=== PATIENT | male | born 1940 | race Caucasian/White ===

== ENCOUNTER 2017-12-06 20:05 | Emergency (ER) | payer MEDICARE, MEDICAID ==
[~2017-12-06] VITALS: Ht 182.9 cm; Wt 59.0 kg
--- NOTE | 2017-12-06 20:05 | NUR ---
BIBA TO ER BED 1
[2017-12-06 20:13] VITALS: BP 71/43
[2017-12-06] MEDS ORDERED: MEROPENEM 1,000 MG in NACL 0.9% 100 ML IV ONE (20:15)
[2017-12-06] MEDS ORDERED: VANCOMYCIN 1,000 MG in DEXTROSE 5% 250 ML IV ONE (20:15)
[2017-12-06] MEDS ORDERED: NACL 0.9% 2,000 ML IV ONE (20:15)
[2017-12-06] MEDS ORDERED: VANCOMYCIN 1,000 MG VIAL ONE (20:38)
[2017-12-06] MEDS ORDERED: MEROPENEM 1,000 MG VIAL IV ONE (20:38)
--- NOTE | 2017-12-06 20:55 | NUR ---
MORELAND REMOVED FROM CEC/SNF. NEW 16FR MORELAND INSERTED, WAITING ON UA. # 16 FR Moreland catheter with 10 ml utilizing sterile technique. Immediate return of CLOUDY YELLOW 2ml urine noted. Bedside drainage bag placed below level of bladder. Urine sample collected and sent to lab. Pt tolerated procedure .
[2017-12-06 21:30] LABS: HEMATOCRIT 42.9 % (36-52); HEMOGLOBIN 13.5 g/dL (12.0-18.0); MEAN CORPUSCULAR HEMOGLOBIN 25 pg (27-31); MEAN CORPUSCULAR HGB CONC 31 g/dL (33-37); MEAN CORPUSCULAR VOLUME 79 fL (80-94); PLATELET COUNT (AUTO) 485 K/uL (140-450); RED BLOOD CELL COUNT(AUTO) 5.43 MIL/uL (4.20-6.10); RED CELL DISTRIBUTION WIDTH 15.6 % (11.6-13.7)
--- NOTE | 2017-12-06 21:30 | NUR ---
Patient noted to have existing wounds upon arrival to ER. Photos taken of wound and placed in chart. Wound covered with dressing. Physician informed.
[2017-12-06 21:47] LABS: WHITE BLOOD COUNT (AUTO) 31.9 K/uL (4.8-10.8)
[2017-12-06 21:48] LABS: LYMPHOCYTES % (MANUAL) 7 % (20-46); MONOCYTES % (MANUAL) 1 % (5-12); PROTHROMBIN TIME 10.3 secs (10.8-13.4)
--- NOTE | 2017-12-06 21:48 | NUR ---
Critical lab recieved: WBC 31.9. Dr Caballero informed. Antibiotics running at this time.
[2017-12-06 21:58] LABS: ALBUMIN 2.5 g/dL (3.4-5.0); ANION GAP 19.8 (8-16); ASPARTATE AMINOTRANSFERASE 71 U/L (15-37); CHLORIDE 120 mmol/L (98-107); GLUCOSE 275 mg/dL (74-106); LIPASE 144 U/L (73-393); POTASSIUM 3.8 mmol/L (3.5-5.1); TOTAL BILIRUBIN 0.8 mg/dL (0.0-1.0)
[2017-12-06 22:06] LABS: SODIUM SERUM 164 mmol/L (136-145); UREA NITROGEN, BLOOD 81 mg/dL (7-18)
--- NOTE | 2017-12-06 22:47 | NUR ---
Pt in bed with HOB elevated. VSS. Pt no longer hypotensive. ER MD aware. Continue to monitor.
--- NOTE | 2017-12-06 23:23 | NUR ---
Pt in bed with HOB elevated. VSS. ER MD aware. Continue to monitor.
[2017-12-06 23:34] LABS: APPEARANCE,URINE CLOUDY (CLEAR); BILIRUBIN,URINE 1+ (NEGATIVE); BLOOD, URINE TRACE-L (NEGATIVE); COLOR,URINE YELLOW (YELLOW); LEUKOCYTE ESTERASE ,URINE 1+ (NEGATIVE); NITRITE, URINE NEGATIVE (NEGATIVE); UGLUCOSE NEGATIVE (NEGATIVE)
[2017-12-06] MEDS ORDERED: NACL 0.9% 1,000 ML IV ONE (23:40)
[2017-12-06] MEDS ORDERED: ACETAMINOPHEN 650 MG/20.3 ML UDC ONE (23:44)
[2017-12-06] MEDS ORDERED: ACETAMINOPHEN 650 MG SUPP RC ONE (23:49)
[2017-12-06 23:58] LABS: HYALINE CASTS, URINE 0-10 /LPF (None Seen); RBC,URINE 11-20 (MOD) /HPF (0-5); URINE AMORPHOUS URATE 3+ /HPF (None Seen)
--- NOTE | 2017-12-07 | NUR ---
Pt with temp of 101.2. Tylenol 650mg supp given per protocol. Dr Caballero notifed. Cooling measures in place. Continue to monitor.
--- NOTE | 2017-12-07 00:02 | NUR ---
Lab called with critical values: Lactic acid 3.7, Troponin 0.158. Dr Caballero immediately informed. Continue to [facility].
[2017-12-07 00:52] LABS: CREATINE KINASE MB 0.3 ng/mL (0-3.6)
--- NOTE | 2017-12-07 01:04 | NUR ---
Patient appears to be resting in bed. Vital Signs within normal limits. Respirations even and unlabored.
--- NOTE | 2017-12-07 01:06 | NUR ---
Respiratory Therapist at bedside for respiratory intervention. Patient tolerated well. 02 decreased to 6L via mask.
--- NOTE | 2017-12-07 01:30 | NUR ---
Pt report given to ALESSANDRO. Transfer of care at this time.
--- NOTE | 2017-12-07 02:00 | NUR ---
HOB elevated. Pt's eyes open. VSS. ER MD and staff aware. Continue monitoring.
--- NOTE | 2017-12-07 03:00 | NUR ---
HOB elevated. Pt's eyes open. VSS. ER MD and staff aware. Continue monitoring.
[2017-12-07] MEDS ORDERED: MORPHINE SULFATE 2 MG/ML SYR IVP ONE (03:25)
[2017-12-07] MEDS ORDERED: ONDANSETRON 4 MG/2 ML VIAL IVP ONE (03:25)
--- NOTE | 2017-12-07 03:30 | NUR ---
Pt agitated and groning. ER MD notified. Medicated to decrease pain. VSS. Continue monitoring.
[2017-12-07] MEDS ORDERED: NACL 0.45% 1,000 ML IV ONE (03:35)
[2017-12-07 03:56] LABS: HEMATOCRIT 38.2 % (36-52); HEMOGLOBIN 11.8 g/dL (12.0-18.0); MEAN CORPUSCULAR HEMOGLOBIN 25 pg (27-31); MEAN CORPUSCULAR HGB CONC 31 g/dL (33-37); MEAN CORPUSCULAR VOLUME 80 fL (80-94); PLATELET COUNT (AUTO) 338 K/uL (140-450); RED BLOOD CELL COUNT(AUTO) 4.78 MIL/uL (4.20-6.10); RED CELL DISTRIBUTION WIDTH 15.4 % (11.6-13.7)
--- NOTE | 2017-12-07 04:10 | NUR ---
Pt temp [id number]. Cooling measures implemented.
[2017-12-07] MEDS ORDERED: ACETAMINOPHEN 650 MG SUPP RC ONE ×3 (04:20→04:21)
[2017-12-07 04:23] LABS: ANION GAP 14.5 (8-16); ASPARTATE AMINOTRANSFERASE 45 U/L (15-37); CARBON DIOXIDE 24.9 mmol/L (21-32); CHLORIDE 124 mmol/L (98-107); CREATININE 3.1 mg/dL (0.7-1.3); GLUCOSE 332 mg/dL (74-106); POTASSIUM 3.4 mmol/L (3.5-5.1); TOTAL BILIRUBIN 0.9 mg/dL (0.0-1.0)
--- NOTE | 2017-12-07 04:30 | NUR ---
Pt escorted to CT via vi with [facility] and tech
[2017-12-07 04:32] LABS: SODIUM SERUM 160 mmol/L (136-145)
[2017-12-07 04:33] LABS: UREA NITROGEN, BLOOD 73 mg/dL (7-18)
[2017-12-07 04:34] LABS: WHITE BLOOD COUNT (AUTO) 35.5 K/uL (4.8-10.8)
[2017-12-07 04:35] LABS: LYMPHOCYTES % (MANUAL) 4 % (20-46); MONOCYTES % (MANUAL) 2 % (5-12)
--- NOTE | 2017-12-07 04:40 | NUR ---
Pt returned to ED from CT
[2017-12-07] MEDS ORDERED: PIPERACILLIN/TAZOBACTAM 4.5 GM in DEXTROSE 5% 100 ML IV ONE (04:55)
[2017-12-07] MEDS ORDERED: PIPERACILLIN/TAZOBACTAM 2.25 GM VIAL IV ONE (05:01)
[2017-12-07] MEDS ORDERED: IPRATROPIUM 0.02% 0.5 MG/2.5 ML NEBU INH ONE (05:15)
[2017-12-07] MEDS ORDERED: ALBUTEROL 0.083% 2.5 MG/3 ML NEBU INH ONE (05:15)
[2017-12-07] MEDS ORDERED: MORPHINE SULFATE 4 MG/ML SYR IVP ONE (05:40)
[2017-12-07] MEDS ORDERED: MORPHINE SULFATE 4 MG/ML SYR ONE (05:42)
--- NOTE | 2017-12-07 05:45 | NUR ---
Pt continues to exhibit pain with grunting/moaning. ER MD notified. Medicated to reduce pain. VSS. Continue monitoring.
--- NOTE | 2017-12-07 06:00 | NUR ---
Pt positioned for comfort. Pt appears to be resting. Not groaning or facial grimace at this time. VSS continue to monitor.
[2017-12-07 06:02] LABS: ANION GAP 16.5 (8-16); CARBON DIOXIDE 20.8 mmol/L (21-32); CHLORIDE 117 mmol/L (98-107); CREATININE 2.5 mg/dL (0.7-1.3); GLUCOSE 315 mg/dL (74-106); POTASSIUM 3.3 mmol/L (3.5-5.1); SODIUM SERUM 151 mmol/L (136-145)
--- NOTE | 2017-12-07 06:06 | NUR ---
Lab called with critical lab value: BUN 64. Dr Caballero notified immediately. Continue to monitor. VSS
[2017-12-07 06:07] LABS: UREA NITROGEN, BLOOD 64 mg/dL (7-18)
--- NOTE | 2017-12-07 06:15 | NUR ---
Spoke to [place] with updated Chem-7 labs. Pt VSS. Awaiting call back from [place] at this time. ER MD and staff notified. Continue to monitor.
--- NOTE | 2017-12-07 07:08 | NUR ---
[facility] . Dr Tiffanie Artis MD, Step down room 8041M ETA: ALS 07:30
--- NOTE | 2017-12-07 07:10 | NUR ---
RECEIVED REPORT FROM JESU FRANCOIS. Patient appears to be resting comfortably in bed. Vital Signs within normal limits. Respirations even and unlabored. WILL CONTINUE TO MONITOR.
--- NOTE | 2017-12-07 07:27 | NUR ---
TRIED TO CALL REPORT PT TO [facility]; 10 MINS WILL CALL BACK.
[2017-12-07 07:41] VITALS: BP 115/45
--- NOTE | 2017-12-07 07:41 | NUR ---
Patient to be transferred to [facility]. Is being transferred due to []. Receiving facility has accepting physician and available space. ER physician has signed transfer form. Patient or responsible green party has agreed to transfer and signed form. Patient belongings inventoried and will be sent with patient. Copy of nursing notes, lab reports, EKG, Physicians Orders and X-rays to be sent with patient. Report called to JESU CHAVIRA at receiving facility. [facility] service has been called for transfer. ERIC LEÓN.
--- NOTE | 2017-12-07 07:49 | NUR ---
CREW ARRIVED FOR PT TRANSPORT TO [facility]
--- NOTE | 2017-12-07 08:13 | NUR ---
PT LEFT WITH AMBULANCE CREW
== END 2017-12-07 08:13 | disposition short-term general hospital (02) ==
LOC: MED 20:05
DX: A41.9 Sepsis, unspecified organism (principal); J18.1 Lobar pneumonia, unspecified organism; N39.0 Urinary tract infection, site not specified; E86.0 Dehydration; E87.0 Hyperosmolality and hypernatremia; E11.9 Type 2 diabetes mellitus without complications; I10 Essential (primary) hypertension
CPT/HCPCS: 36415; 36600; 71045; 74176; 80048; 80053; 81001; 82140; 82550; 82553; 82803; 83605; 83690; 84484; 85025; 85384; 85610; 85730; 86886; 86900; 86901; 87040; 87086; 87205; 93005; 94640; 96361; 96365; 96366; 96367; 96375; 96376; 99291; 99292; J2185; J2270; J2405; J2543; J3370; J7030; J7060; J7613; J7644; 87070

== ENCOUNTER 2018-04-24 06:45 | Inpatient (IN) | payer MEDICARE, MEDICAID ==
[~2018-04-24] VITALS: Ht 165.1 cm; Wt 55.3 kg
--- NOTE | 2018-04-24 06:45 | NUR ---
PT BIBA ALS, TAKEN TO BED 10
--- NOTE | 2018-04-24 06:48 | NUR ---
Dr. Thao evaluating patient at bedside.
[2018-04-24 06:54] VITALS: BP 111/48
[2018-04-24] MEDS ORDERED: NACL 0.9% 500 ML IV SCH (07:05)
--- NOTE | 2018-04-24 07:09 | NUR ---
PT. BIB ALS FROM [facility] DUE TO "WAKING UP ALTERED" PER REPORT GIVEN BY JESU BLANDON. PT. IS AWAKE AND ALERT X 2 , RR EVEN AND TaCHYPNEIC. PT. IS WARM AND DRY TO TOUCH. LS: CRACKLES BILATERAL BASES. 4L VIA NC. MORELAND CATH IN PLACE FROM [facility]. COUGH: NON PRODUCTIVE.NO BAUSEA OR VOMITING AT THIS TIME. SAFETY PRECAUTIONS INITIATED. ER MD NOTIFIED. WILL CONTINUE TO MONITOR.
[2018-04-24] MEDS ORDERED: LACT0.5T PO (07:21)
[2018-04-24] MEDS ORDERED: DOCU-300 PO (07:21)
[2018-04-24] MEDS ORDERED: [UNRECOGNIZED DRUG - CODE] TD (07:21)
[2018-04-24] MEDS ORDERED: TAMS0.4C96 PO (07:21)
[2018-04-24] MEDS ORDERED: [UNRECOGNIZED DRUG - CODE] PO (07:21)
[2018-04-24] MEDS ORDERED: KEP500 PO (07:21)
[2018-04-24] MEDS ORDERED: ASPI81CT33 PO (07:21)
[2018-04-24] MEDS ORDERED: CRAN450T4 PO (07:21)
--- NOTE | 2018-04-24 07:33 | NUR ---
LAB AT BEDSIDE AT THIS TIME.
[2018-04-24] MEDS ORDERED: MULT-492 PO (07:45)
[2018-04-24] MEDS ORDERED: HYDR-7 PO (07:45)
[2018-04-24] MEDS ORDERED: AMLO10TA PO (07:45)
[2018-04-24] MEDS ORDERED: ACET-9800 PO (07:45)
[2018-04-24] MEDS ORDERED: METO25TA PO (07:45)
[2018-04-24] MEDS ORDERED: ACET-2619 PO (07:45)
[2018-04-24] MEDS ORDERED: MELA5TAB5 PO (07:45)
[2018-04-24] MEDS ORDERED: ASCO500T45 PO (07:45)
[2018-04-24] MEDS ORDERED: DRON2.5C PO (07:45)
[2018-04-24] MEDS ORDERED: MIRABULK PO (07:45)
[2018-04-24] MEDS ORDERED: GABA100C PO (07:45)
[2018-04-24] MEDS ORDERED: OMEP20TC PO (07:45)
[2018-04-24] MEDS ORDERED: LACT10SO1 PO (07:45)
[2018-04-24] MEDS ORDERED: GLIP5TER PO (07:52)
[2018-04-24] MEDS ORDERED: SLIDE SUBQ (07:52)
[2018-04-24] MEDS ORDERED: FENT50TD45 TD (07:52)
--- NOTE | 2018-04-24 08:36 | NUR ---
PT. REPOSITIONED FOR COMFORT, RR EVEN AND UNLABORED. BED IN LOWEST POSITION. PT HAS NO URINE OUTPUT FROM CATHETER AT THIS TIME. ER MD RUSSELL NOTIFIED. WILL CONTINUE TO MONITOR.
[2018-04-24] MEDS ORDERED: NACL 0.9% 500 ML IV ONE ×3 (08:40→19:25)
[2018-04-24 08:45] LABS: PROTHROMBIN TIME 11.4 secs (10.8-13.4)
[2018-04-24 08:49] LABS: CHLORIDE 108 mmol/L (98-107); GLUCOSE 280 mg/dL (74-106); SODIUM SERUM 146 mmol/L (136-145); UREA NITROGEN, BLOOD 35 mg/dL (7-18)
[2018-04-24 08:55] LABS: ALBUMIN 2.7 g/dL (3.4-5.0); ASPARTATE AMINOTRANSFERASE 19 U/L (15-37); TOTAL BILIRUBIN 0.6 mg/dL (0.0-1.0)
--- NOTE | 2018-04-24 08:57 | NUR ---
FRANK VENTURA CALLED FROM LAB TO REPORT A CRITICAL LAB FINDING OF LACTIC ACID 9.8. ER MD RUSSELL NOTIFIED.
[2018-04-24 08:59] LABS: HEMATOCRIT 40.8 % (36-52); HEMOGLOBIN 12.5 g/dL (12.0-18.0); MEAN CORPUSCULAR HEMOGLOBIN 26 pg (27-31); MEAN CORPUSCULAR HGB CONC 31 g/dL (33-37); MEAN CORPUSCULAR VOLUME 83.8 fL (80-94); PLATELET COUNT (AUTO) 254 K/uL (140-450); RED BLOOD CELL COUNT(AUTO) 4.87 MIL/uL (4.20-6.10); RED CELL DISTRIBUTION WIDTH 15.8 % (11.6-13.7)
[2018-04-24] MEDS ORDERED: fentaNYL 0.05 MG/HR PATCH TD SCH (09:00)
[2018-04-24] MEDS ORDERED: PIPERACILLIN/TAZOBACTAM 3.375 GM in DEXTROSE 5% 50 ML IV ONE (09:00)
[2018-04-24] MEDS ORDERED: PIPERACILLIN/TAZOBACTAM 3.375 GM VIAL IV ONE (09:07)
[2018-04-24 09:12] LABS: WHITE BLOOD COUNT (AUTO) 37.8 K/uL (4.8-10.8)
[2018-04-24 09:13] LABS: LYMPHOCYTES % (MANUAL) 6 % (20-46); MONOCYTES % (MANUAL) 3 % (5-12)
[2018-04-24] MEDS ORDERED: SODIUM BICARBONATE 8.4% PFS 50 MEQ/50 ML SYR IVP ONE (09:25)
[2018-04-24] MEDS ORDERED: ASPIRIN 600 MG SUPP RC ONE (09:25)
--- NOTE | 2018-04-24 10:12 | NUR ---
RT at bedside at this time.
--- NOTE | 2018-04-24 10:13 | NUR ---
PT. has not produced any urine at this time. ER notified. Will continue to monitor.
--- NOTE | 2018-04-24 10:43 | NUR ---
PT. TAKEN TO CT SCAN VIA GURNEY BY FABRIC SEPARATOR OPERATOR
--- NOTE | 2018-04-24 11:31 | NUR ---
PT. RESTING COMFORTABLY IN BED, RR EVEN AND UNLABORED. BED IN LOWEST POSITION, VSS. WILL CONTINUE TO MONITOR.
[2018-04-24] MEDS ORDERED: NACL 0.9% 1,000 ML IV SCH (12:01)
[2018-04-24] MEDS ORDERED: HYDROcodone/APAP 5/325 MG 1 TAB TAB PO PRN (12:05)
[2018-04-24] MEDS ORDERED: ACETAMINOPHEN 325 MG TAB PO PRN (12:05)
[2018-04-24] MEDS ORDERED: ZOLPIDEM 5 MG TAB PO PRN (12:05)
[2018-04-24] MEDS ORDERED: ONDANSETRON 4 MG/2 ML VIAL IM/IVP PRN (12:05)
[2018-04-24] MEDS ORDERED: LORazepam 2 MG/ML VIAL IM/IVP PRN (12:05)
[2018-04-24] MEDS ORDERED: MUPIROCIN 2% OINT 22 GM TUBE TP PRN (12:05)
[2018-04-24] MEDS ORDERED: DOCUSATE SODIUM 100 MG GELCAP PO PRN (12:05)
[2018-04-24 12:24] LABS: APPEARANCE,URINE HAZY (CLEAR); BILIRUBIN,URINE 2+ (NEGATIVE); BLOOD, URINE 2+ (NEGATIVE); COLOR,URINE YELLOW (YELLOW); LEUKOCYTE ESTERASE ,URINE NEGATIVE (NEGATIVE); NITRITE, URINE NEGATIVE (NEGATIVE); UGLUCOSE NEGATIVE (NEGATIVE)
[2018-04-24] MEDS ORDERED: NOREPINEPHRINE 4 MG in DEXTROSE 5% 250 ML IV PRN (12:25)
[2018-04-24] MEDS ORDERED: NOREPINEPHRINE 8 MG in DEXTROSE 5% 250 ML IV PRN (12:25)
[2018-04-24] MEDS ORDERED: ALBUTEROL SULFATE/IPRATROPIU 3 ML SOL IH PRN ×2 (12:30→22:00)
--- NOTE | 2018-04-24 12:30 | NUR ---
PT. IN BED RESTING, PT. REPOSITIONED, PILLOW IN PLACE BETWEEN LEGS, BED IN LOWEST POSITION. WILL CONTINUE TO MONITOR.
[2018-04-24 12:37] LABS: RBC,URINE 0-5 (RARE) /HPF (0-5); URINE AMORPHOUS URATE 1+ /HPF (None Seen)
[2018-04-24 12:51] LABS: BARBITURATE, URINE NEG. ng/ml (NEG <=200); BENZODIAZEPINE, URINE NEG. ng/mL (NEG <=200); CANNABINOID, URINE POS. ng/mL (NEG <=50); COCAINE, URINE NEG. ng/mL (NEG <=300); OPIATE, URINE NEG. ng/mL (NEG <=2000); PHENCYCLIDINE SCREEN,URINE NEG. ng/mL (NEG <=25)
[2018-04-24] MEDS ORDERED: HEPARIN PER PHARMACY MC PRN (13:00)
[2018-04-24] MEDS ORDERED: hePARIN / DEXT 5% PREMIX 250 ML IV SCH ×2 (13:00→13:20)
--- NOTE | 2018-04-24 13:00 | NUR ---
Patient will be admitted to care of DR. BAUTISTA . Admited to ICU . Will go to room ICU ROOM 5 . Belongings list completed. Report to JESU OVGT .
--- NOTE | 2018-04-24 13:10 | NUR ---
PATIENT ARRIVED TO THE UNIT WITH RETAIL LEADER AND EMT AT 1300. RECEIVED REPORT FOR CONTINUITY OF CARE. PATIENT AAOX1, NONVERBAL, RESPONDS TO LIGHT PAIN. SKIN IS WARM AND DRY AND INTACT. HE HAS A PERIPHERAL IV SITE TO RIGHT WRIST, 22 GAUGE, ASYMPTOMATIC AND PATENT. HE IS ON 2L NASAL CANNULA, O2 SAT IS 100, CRACKLES HEARD ON THE BILATERAL BASES, SR ON MONITOR. PATIENT HAS MORELAND CATHETER IN PLACE. HOB IS 45 DEGREES, PATIENT IS WATCHING TV COMFORTABLY. NO SIGNS OF DISTRESS NOTED AT THIS TIME. WILL CONTINUE TO MONITOR
[2018-04-24 14:00] VITALS: BP 125/71
--- NOTE | 2018-04-24 14:05 | NUR ---
DR. HAM AT BEDSIDE TO EXAMINE PATIENT, UPDATED ON PATIENT'S CONDITION. WILL FOLLOW UP ON ANY ORDERS
[2018-04-24] MEDS ORDERED: LORazepam 2 MG/ML VIAL IVP SCH (14:15)
[2018-04-24] MEDS ORDERED: metroNIDAZOLE 500 MG/NS PREMIX 100 ML IV SCH (14:15)
--- NOTE | 2018-04-24 14:15 | NUR ---
SPOKE WITH DAUGHTER NUNO, RECEIVED TELEPHONE CONSENT FOR CENTRAL LINE PLACEMENT, SHE AGREED FOR PROCEDURE. UPDATED DAUGHTER ON PATIENT'S CONDITION.
[2018-04-24] MEDS: DEXT 5% /NACL 0.9% 1,000 ML IV SCH ×2 (14:39→20:01)
--- NOTE | 2018-04-24 14:45 | NUR ---
AND DR. AVELAR AT BEDSIDE WITH THE [facility] FOR CENTRAL LINE PLACEMENT. PATIENT PRESENTS NO SIGNS OF DISTRESS AT THIS TIME.
[2018-04-24] MEDS: ALBUTEROL SULFATE/IPRATROPIU 3 ML SOL IH SCH ×2 (14:52→19:43)
--- NOTE | 2018-04-24 14:52 | NUR ---
PT HAVING STERILE PROCEDURE HHN NOT GIVEN 98 SPO2 ON RA
[2018-04-24] MEDS ORDERED: LORazepam 2 MG/ML VIAL IM/IVP SCH (14:55)
[2018-04-24] MEDS ORDERED: NON-FORMULARY ITEM (Lactulose 10 GM) PO PRN (14:55)
[2018-04-24 15:02] LABS: CHOL/HDL RATIO 3.1 (1-4.5); MAGNESIUM 1.5 mg/dL (1.8-2.4); THYROID STIMULATING HORMONE 0.45 uIU/mL (0.34-3.74)
[2018-04-24] MEDS ORDERED: HYDROmorphone 1 MG/ML AMP IVP SCH (15:05)
[2018-04-24] MEDS ORDERED: HYDROmorphone PFS 2 MG/ML SYR ONE (15:14)
[2018-04-24] MEDS ORDERED: DEXTROSE 50% 50 ML SYR IVP PRN (15:25)
[2018-04-24] MEDS ORDERED: INSULIN LISPRO SLIDING SCALE 100 UNITS/ML VIAL SUBQ PRN (15:25)
--- NOTE | 2018-04-24 15:28 | NUR ---
CENTRAL LINE PLACE COMPLETED, PATIENT TOLERATED WELL. PATIENT WAS GIVEN ATIVAN AND DILAUDID DURING PROCEDURE, VITALS WERE STABLE. NO SIGNS OF DISTRESS NOTED. WILL CONTINUE TO MONITOR.
--- NOTE | 2018-04-24 15:50 | NUR ---
LAMP SHADE ASSEMBLER AT BEDSIDE FOR XRAY OF PLACEMENT OF CENTRAL LINE. NO SIGNS OF DISTRESS NOTED.
[2018-04-24 16:00] VITALS: BP 95/59
[2018-04-24] MEDS: BLOOD GLUCOSE MONITORING 1 DEV DEV FS SCH ×2 (16:30→20:18)
--- NOTE | 2018-04-24 16:51 | NUR ---
US TECH AT BEDSIDE FOR US OF CAROTID, PATIENT IS RESTING COMFORTABLY, NO SIGNS OF DISTRESS NOTED. WILL CONTINUE TO MONITOR
[2018-04-24] MEDS: GABAPENTIN 100 MG CAP PO SCH ×2 (17:00→17:54)
--- NOTE | 2018-04-24 17:02 | NUR ---
CHANGED AND CLEANED PATIENT, TOLERATED WELL. NO SIGNS OF DISTRESS NOTED.
[2018-04-24] MEDS ORDERED: LACTULOSE 20 GM/30 ML UDC PO PRN (17:20)
--- NOTE | 2018-04-24 17:56 | NUR ---
TRIED TO ADMINISTER PATIENT'S SCHEDULE PO MEDS HOWEVER PATIENT REFUSED TO TAKE IT.
[2018-04-24 18:00] VITALS: BP 106/54
--- NOTE | 2018-04-24 18:07 | NUR ---
PATIENT IS RESTING COMFORTABLY, NO SIGNS OF DISTRESS NOTED.
--- NOTE | 2018-04-24 18:26 | NUR ---
PATIENT'S DAUGHTER AT BEDSIDE, UPDATED ON PATIENT'S CONDITION. NO SIGNS OF DISTRESS NOTED.
--- NOTE | 2018-04-24 18:39 | NUR ---
PATIENT'S DAUGHTER NUNO FIGUEROA AT BEDSIDE. UPDATED OF PATIENT'S CONDITION.
--- NOTE | 2018-04-24 19:04 | NUR ---
DR. ZELAYA AND DR. PATEL AT BEDSIDE, UPDATED ON PATIENTS CONDITION. DR. PATEL UPDATED PATIENT'S DAUGHTER ON PATIENT'S CONDITION. NO SIGNS OF DISTRESS NOTED AT THIS TIME.
--- NOTE | 2018-04-24 19:15 | NUR ---
ENDORSED BEDSIDE REPORT TO POLICY LOAN CALCULATOR RN FOR CONTINUITY OF CARE. NO SIGNS OF DISTRESS NOTED AT THIS TIME
--- NOTE | 2018-04-24 19:20 | NUR ---
RECEIVED REPORT FROM AM SHIFT. PT RECEIVING FLUID BOLUS NS 500ML. IV SITE. TEMP WNL. IV SITE RIGHT IJ. LEFT HAND. LEFT WRIST PATENT. NO SIGNS OF ACUTE DISTRESS AT THIS TIME. BED IN LOWEST POSITION. SIDE RAILS UP X4. FAMILY AT BEDSIDE Addendum: 04/24/18 at 2352 by Leopoldo Wilson RN PT IS AO X 1. AFEBRILE. NONVERBAL. RESPONDS TO VERBAL AND TACTILE STIMULI. O2 2LPM VIA NC. LUNG SOUNDS CLEAR BILATERALLY. A FIB ON MONITOR. F/C PATENT URINE CLEAR, YELLOW. ABD SOFT, ROUND. BOWEL SOUNDS HYPO ACTIVE X4 QUADRANTS. CONTRACTED BUE/BLE. SKIN WARM DRY. REDNESS NOTED TO SACRAL COCCYX AREA. WILL CONTINUE TO MONITOR.
[2018-04-24 20:00] VITALS: BP 112/62
[2018-04-24] MEDS: PIPER/TAZO 2.25GM/D5W PREMIX 50 ML IV SCH (20:01)
--- NOTE | 2018-04-24 20:02 | NUR ---
PT NO LONGER RECEIVING OXYGEN VIA NC AT THIS TIME. PER RT, PT CAN TOLERATED IT DUE TO OXYGEN SATURATION RIGHT NOW AT 2L/MIN IS AT 100%. PER RT, OXYGEN SATURATION TO BE KEPT BETWEEN 92%-94%. WILL CONTINUE TO MONITOR PT.
[2018-04-24] MEDS: CHOLECALCIFEROL 1,000 IU TAB PO SCH (20:03)
[2018-04-24] MEDS: LACTOBACILLUS RHAMNOSUS GG 1 EACH CAP PO SCH (20:04)
[2018-04-24] MEDS: levETIRAcetam 500 MG TAB PO SCH (20:04)
[2018-04-24] MEDS: ASCORBIC ACID 500 MG TAB PO SCH (20:04)
--- NOTE | 2018-04-24 20:05 | NUR ---
DID NOT ADMINISTER PO MEDS. PT DROWSY UNABLE TO SWALLOW PILLS.
--- NOTE | 2018-04-24 20:05 | NUR ---
500 ML NS BOLUS FINISHED. BLOOD PRESSURE 112/62. NO SIGNS OF ACUTE DISTRESS NOTED.
--- NOTE | 2018-04-24 20:28 | NUR ---
CALLED LAB AND SPOKE WITH RUCHI, INFORMED HER THAT PTT ORDERED FOR 2114 WAS D/C PER PT NO LONGER ON HEPARIN DRIP.
--- NOTE | 2018-04-24 20:42 | NUR ---
SPOKE WITH RESIDENT DR. CRUZ. NOTIFIED OF MG 1.5 WILL CONTINUE ANY FOLLOW UP ORDERS.
[2018-04-24] MEDS: metroNIDAZOLE 500 MG/NS PREMIX 100 ML IV SCH (20:55)
[2018-04-24] MEDS ORDERED: LACTOBACILLUS ACIDOPHILUS PO SCH (21:00)
[2018-04-24] MEDS ORDERED: CHOLECALCIFEROL PO SCH (21:00)
--- NOTE | 2018-04-24 21:28 | NUR ---
NO STOCK IN [facility] FOR ORDER OF MAG SULFATE 2G/50ML. HAMMER HEATER PROVIDED MAG SULFATE 1G/100ML. CALLED RESIDENT TO CHANGE ORDERS. NEW ORDER GIVEN MAG OXIDE TABLET. PT UNABLE TO SWALLOW. SPOKE TO PHARMACIST ON PROPER RATE FOR MAG SULFATE 1G/100ML. CALLED RESIDENT TO INFORM TO REINSTATE OLD ORDER.
[2018-04-24] MEDS ORDERED: MAG SULF 2000 MG/WATER PREMIX 50 ML IV ONE (21:30)
[2018-04-24 22:00] VITALS: BP 88/51
[2018-04-24] MEDS ORDERED: MAG SULF 2000 MG/WATER PREMIX 50 ML IV SCH (22:00)
[2018-04-24] MEDS ORDERED: MAGNESIUM OXIDE 400 MG TAB PO SCH (22:00)
[2018-04-24] MEDS: MAGNESIUM SULFATE 50% 1,000 MG in NACL 0.9% 50 ML IV SCH ×2 (22:28→23:57)
--- NOTE | 2018-04-24 22:40 | NUR ---
SAW TROPONIN ORDER FOR 1999 TROPONIN CANCELLED. CALLED LAB AND SPOKE WITH RUCHI, ACCORDING TO HER THE ORDER WAS FROM DR. AVELAR, TROPONIN WAS LAST DRAWN AT AROUND 1600.
--- NOTE | 2018-04-24 22:55 | NUR ---
CALLED RESIDENT [employer]ORS. SPOKE WITH DR. CADET, ACCORDING TO HER, TROPONIN SERIES IS GOING TO BE CONTINUED. DR. CADET TO PUT IN THE ORDER FOR TROPONIN AT 0148.
--- NOTE | 2018-04-24 23:04 | NUR ---
CALLED LAB, SPOKE WITH ADRIEL. INFORMED HER REGARDING THE TROPONIN DRAW ORDERED AT 0148.
[2018-04-25] VITALS (12 sets, daily range): BP systolic 99–126; BP diastolic 51–73
--- NOTE | 2018-04-25 00:04 | NUR ---
PT RESTING QUIETLY. AFEBRILE. ON ROOM AIR. NO SIGNS OF ACUTE DISTRESS NOTED. BED IN LOWEST POSITION. CALL LIGHT WITHIN REACH. WILL CONTINUE TO MONITOR.
--- NOTE | 2018-04-25 02:15 | NUR ---
VS STABLE AT THIS TIME. CURRENTLY NO CHANGE IN CONDITION. PT ASLEEP. DOES NOT APPEAR TO BE IN ANY PAIN OR IN ANY DISCOMFORT. ALL SAFETY PRECAUTION ARE IN PLACE. HOB KEPT AT 30 DEGREES. WILL CONTINUE TO MONITOR PT.
[2018-04-25] MEDS: MORPHINE SULFATE 2 MG/ML SYR IVP PRN ×2 (04:04→08:10)
[2018-04-25] MEDS: PIPER/TAZO 2.25GM/D5W PREMIX 50 ML IV SCH ×3 (04:07→20:41)
--- NOTE | 2018-04-25 04:30 | NUR ---
PAIN MEDICATION ADMINISTERED TO PT. CURRENTLY ASLEEP AT THIS TIME AND DOES NOT APPEAR TO BE IN PAIN. WILL CONTINUE TO MONITOR PT.
[2018-04-25] MEDS: metroNIDAZOLE 500 MG/NS PREMIX 100 ML IV SCH ×3 (05:12→21:30)
--- NOTE | 2018-04-25 05:30 | NUR ---
MORNING CARE PROVIDED TO PT. ONE SOFT BROWN BM NOTED AT THIS TIME. MORELAND CATHETER CARE PROVIDED. PT TURNED AND REPOSITIONED. ALL SAFETY PRECAUTIONS ARE IN PLACE. WILL CONTINUE TO MONITOR PT.
[2018-04-25] MEDS: PANTOPRAZOLE 40 MG TABEC PO SCH (05:38)
[2018-04-25 06:25] LABS: HEMATOCRIT 29.6 % (36-52); HEMOGLOBIN 9.6 g/dL (12.0-18.0); MEAN CORPUSCULAR HEMOGLOBIN 26 pg (27-31); MEAN CORPUSCULAR HGB CONC 32 g/dL (33-37); MEAN CORPUSCULAR VOLUME 80.6 fL (80-94); PLATELET COUNT (AUTO) 173 K/uL (140-450); RED BLOOD CELL COUNT(AUTO) 3.67 MIL/uL (4.20-6.10); RED CELL DISTRIBUTION WIDTH 15.6 % (11.6-13.7); WHITE BLOOD COUNT (AUTO) 21.7 K/uL (4.8-10.8)
[2018-04-25] MEDS ORDERED: OMEPRAZOLE MAGNESIUM 20 MG PO SCH (06:30)
--- NOTE | 2018-04-25 06:39 | NUR ---
DR. MUSE AT BEDSIDE TO SEE PT. INFORMED HER REGARDING PT CONDITION. NO NEW ORDERS RECEIVED AT THIS TIME.
[2018-04-25 06:49] LABS: ANION GAP 10.4 (8-16); CARBON DIOXIDE 25.6 mmol/L (21-32); CHLORIDE 114 mmol/L (98-107); CREATININE 1.6 mg/dL (0.7-1.3); GLUCOSE 145 mg/dL (74-106); SODIUM SERUM 147 mmol/L (136-145); UREA NITROGEN, BLOOD 34 mg/dL (7-18)
[2018-04-25 06:54] LABS: MAGNESIUM 2.2 mg/dL (1.8-2.4); PHOSPHORUS 1.7 mg/dL (2.5-4.9)
[2018-04-25 07:06] LABS: LYMPHOCYTES % (MANUAL) 4 % (20-46); MONOCYTES % (MANUAL) 4 % (5-12)
--- NOTE | 2018-04-25 07:14 | NUR ---
ENDORSED CARE TO INCOMING SHIFT. PT IN STABLE CONDITION. NO SIGNS OF ACUTE DISTRESS. CLEAN, AND DRY. BED IN LOWEST POSITION. CALL LIGHT WITHIN REACH.
[2018-04-25] MEDS: BLOOD GLUCOSE MONITORING 1 DEV DEV FS SCH ×4 (07:51→20:42)
--- NOTE | 2018-04-25 08:10 | NUR ---
RECEIVED BEDSIDE REPORT FROM CREDIT RISK MANAGEMENT DIRECTOR RN FOR CONTINUITY OF CARE. PATIENT IS AAOX1, UNABLE TO FOLLOW SIMPLE COMMANDS, HX OF DEMENTIA. PATIENT SKIN IS INTACT, WARM AND DRY. HE HAS A RIJ CENTRAL LINE IN PLACE, AND A PERIPHERAL IV SITE TO LEFT HAND AND RIGHT WRIST. PATIENT IS ON ROOM AIR, AFIB ON MONITOR. PATIENT HAS MORELAND CATHETER IN PLACE. HOB IS IN SEMIFOWLERS POSITION, CALL LIGHT IS WITHIN REACH. NO SIGNS OF DISTRESS NOTED AT THIS TIME. WILL CONTINUE TO MONITOR
--- NOTE | 2018-04-25 08:49 | NUR ---
PATIENT HAS BEEN SCREENED AND CATEGORIZED HIGH NUTRITION RISK. PATIENT WILL BE SEEN WITHIN 1-2 DAYS OF ADMISSION. 04/25/18 04/26/[address]
[2018-04-25] MEDS ORDERED: MULTIVITAMIN PO SCH (09:00)
[2018-04-25] MEDS ORDERED: glipiZIDE ER 5 MG TABER PO SCH (09:00)
[2018-04-25] MEDS ORDERED: ASPIRIN 81 MG PO SCH (09:00)
[2018-04-25] MEDS: LACTOBACILLUS RHAMNOSUS GG 1 EACH CAP PO SCH ×2 (09:14→20:40)
[2018-04-25] MEDS: GABAPENTIN 100 MG CAP PO SCH ×3 (09:14→17:45)
[2018-04-25] MEDS: levETIRAcetam 500 MG TAB PO SCH ×2 (09:15→20:41)
[2018-04-25] MEDS: POLYETHYLENE GLYCOL 17 GM/PKT PO SCH (09:15)
[2018-04-25] MEDS: MULTIVITAMIN 1 TAB PO SCH (09:15)
[2018-04-25] MEDS: ASPIRIN 81 MG TAB.CHEW PO SCH (09:15)
[2018-04-25] MEDS: TAMSULOSIN 0.4 MG CAP PO SCH (09:15)
[2018-04-25] MEDS: PANTOPRAZOLE 40 MG INJ VIAL IVP SCH (09:16)
[2018-04-25] MEDS: ATORVASTATIN 80 MG TAB PO SCH (09:20)
[2018-04-25] MEDS: CHOLECALCIFEROL 1,000 IU TAB PO SCH ×2 (09:21→20:45)
[2018-04-25] MEDS: DEXT 5% / NACL 0.45% 1,000 ML IV SCH ×2 (09:22→22:10)
[2018-04-25] MEDS: ASCORBIC ACID 500 MG TAB PO SCH ×2 (09:22→20:41)
[2018-04-25] MEDS ORDERED: POTASSIUM PHOSPHATE 15 MM in NACL 0.9% 250 ML IV SCH (09:30)
--- NOTE | 2018-04-25 11:05 | NUR ---
WOUND CARE EVALUATION NOTES: REASON FOR EVALUATION: LOW NORM SCORE SKIN ASSESSMENT DONE ON THIS 77 Y/O MALE PAT[place] [facility] [place] [facility], WITH INITIAL DIAGNOSIS OF HYPOXIA. PAST MEDICAL HISTORY INCLUDE CVA, DM AND DEMENTIA. ALL ABOVE INFORMATION WAS OBTAINED FROM THE ADMISSION H&P. PATIENT IS AWAKE AND CONFUSE, INCONTINENT OF BOWEL X 1 DURING ASSESSMENT. F/C PATENT WITH SMALL AMOUNT CLEAR YELLOW DRAINAGE. CONTRACTURE TO BLE. SKIN WARM TO TOUCH, THICKENED LONG TOENAILS, NO EDEMA, NO HAIR GROWTH AND BILATERAL PEDAL PULSES PRESENT. NEEDS ASSISTANCE IN TURNING. PLAN OF CARE AND PRESSURE PREVENTIVE MEASURES DISCUSSED WITH PT AND PRIMARY NURSE. INTEGUMENTARY: -EROSION (PARTIAL THICKNESS SKIN LOSS) TO HEAD OF PENIS, POSSIBLE FROM F/C POSITION AREA IS 0.5 X 1 CM, WOUND BED IS PINK, MOIST NO ODOR, AREA IS CLEAN. -IAD TO SACRAL COCCYX EXTEND TO RIGHT/LEFT INNER BUTTOCKS AND SCROTUM REDNESS, SKIN INTACT -RIGHT AND LEFT HEELS BLANCHABLE REDNESS RECOMMENDATIONS: -APPLY Z-GUARD TO SACRALCOCCYX, R/L INNER BUTTOCKS, SCROTUM IAD, HEAD OF PENIS EROSION BIDWC AND LEAVE IT OPEN TO AIR -APPLY SKIN PREP TO RIGHT/LEFT HEELS BIDWC AND ARNEL -TURN AND REPOSITION PATIENT Q2H TO LEFT AND RIGHT SIDE ONLY TO OFFLOAD SACRALCOCCYX AND BILATERAL HEELS -ASSESS AND MONITOR SKIN CONDITION DURING POSITION CHANGE, PLEASE PAY ATTENTION TO SACRALCOCCYX AND HEELS -OFFLOAD BILATERAL HEELS BY PLACING PILLOWS UNDER CALVES AT ALL TIMES, UNLESS OTHERWISE CONTRAINDICATED -PRESSURE REDISTRIBUTION SURFACE THERAPY RECOMMENDATIONS DISCUSSED WITH PRIMARY RN WILL FOLLOW UP PATIENT Q 7 -10 DAYS AND PRN. PLEASE CONTACT WOUND CARE NURSE FOR ANY QUESTION OR CHANGES IN WOUND CONDITION
--- NOTE | 2018-04-25 11:34 | NUR ---
JONATHAN NOTE FROM ED CALL HISTORY LOG: AUTHORIZED PATIENT FOR ADMISSION AUTH# [id number] FROM DR. HALL FROM [facility] RECEIVED FAX FROM [facility] AUTHORIZATION COVERS ADMISSION FROM 04/24/18-04/25/18 AUTH# [id number] RECEIVED CALL FROM [facility] JONATHAN Valencia PH# [phone] AROUND 1000 TIME AND I GAVE HER A CLINICAL UPDATE ON THE PATIENT AND SHE REQUESTED ALSO FOR CLINICAL REVIEW TO BE FAXED TO [facility] INITIAL REVIEW FAXED TO [facility] [phone] PH# [phone] JONATHAN Valencia # [phone]
--- NOTE | 2018-04-25 13:39 | NUR ---
04/25/18 RD INITIAL ASSESSMENT COMPLETED PLEASE REFER TO NUTRITION ASSESSMENT UNDER CARE ACTIVITY FOR ESTIMATED NUTRITIONAL NEEDS. 1. IF MEDICALLY APPROPRIATE CONSIDER PLACING NASAL GASTRIC TUBE FEED FOR NUTRITION SUPPORT WITH GLUCERNA AT GOAL RATE OF 65 ML/HR. START AT 10 ML/HR INCREASE BY 10 ML Q6H. -THIS WILL PROVIDE 1541 ML, 1850 KCAL, AND 92 GM PROTEIN, MEETING 100% OF ESTIMATED KCAL NEEDS AND 96% OF PROTEIN NEEDS. 2. RD TO FOLLOW-UP 2-3 DAYS, HIGH RISK JUAN A WONG RD
--- NOTE | 2018-04-25 14:08 | NUR ---
PATIENT OBSERVED RESTING, NO SIGNS OF DISTRESS NOTED
--- NOTE | 2018-04-25 14:15 | NUR ---
SPOKE WITH [facility] FOR PLACEMENT FOR PATIENT, HOWEVER NO BEDS AVAILABLE ONLY [place] BUT SHE IS TRYING TO CONTACT PATIENT'S FAMILY TO ASK IF THEY ARE WILLING TO HAVE PATIENT TRANSFER TO THAT LOCATION.
--- NOTE | 2018-04-25 15:23 | NUR ---
PATIENT'S FAMILY DID NOT WANT PATIENT TO GO TO [facility] IN [place], STATES THAT THE LOCATION IS TOO FAR. [facility] WILL FOLLOW UP TOMORROW FOR PATIENT'S TRANSFER.
--- NOTE | 2018-04-25 17:00 | NUR ---
TRIED TO INSERT NG TUBE, PT REFUSED.
[2018-04-25] MEDS ORDERED: Z-GUARD PASTE TP PRN (18:45)
--- NOTE | 2018-04-25 19:09 | NUR ---
GAVE BEDSIDE REPORT TO BREAKER MACHINE TENDER RN FOR CONTINUITY OF CARE, NO SIGNS OF DISTRESS NOTED.
--- NOTE | 2018-04-25 19:12 | NUR ---
RECEIVED REPORT FROM MORNING RN FOR CONTINUITY OF CARE. VS STABLE AT THIS TIME. PT ABLE TO OPEN EYES BUT DROWSY AT THIS TIME. S1+S2 HEARD AT THIS TIME. SR ON MONITOR AT THIS TIME. PER REPORT PT GOES IN BETWEEN SR TO AFIB. LUNG SOUNDS CLEAR. PT HAS INTERMITTENT COUGH THAT IS NON-PRODUCTIVE. BOWEL SOUNDS HYPOACTIVE. ABDOMEN ROUND, SOFT AND NONDISTENDED. MORELAND CATHETER IN PLACE. URINE CLEAR, AND LIGHT GENNARO. MORELAND CATHETER SECURED IN PLACE AND DRAINING. PT HAS RIGHT IJ CENTRAL LINE IN PLACE. D5 0.45% NS RUNNING AT 75ML/HR. HOB KEPT AT 30 DEGREES. ALL SAFETY PRECAUTIONS ARE IN PLACE. WILL CONTINUE TO MONITOR PT.
--- NOTE | 2018-04-25 19:32 | NUR ---
DR. DEJESUS AT BEDSIDE TO SEE PT.
--- NOTE | 2018-04-25 19:45 | NUR ---
DR. PATEL AT BEDSIDE TO SEE PT.
--- NOTE | 2018-04-25 22:38 | NUR ---
PT ASLEEP AT THIS TIME. DOES NOT APPEAR TO BE IN ANY PAIN OR DISCOMFORT. VS STABLE. NO CHANGE IN CONDITION. ALL SAFETY PRECAUTIONS ARE IN PLACE. WILL CONTINUE TO MONITOR PT.
[2018-04-26] VITALS (8 sets, daily range): BP systolic 111–142; BP diastolic 60–80
--- NOTE | 2018-04-26 01:30 | NUR ---
PT ASLEEP. RIGHT IJ CENTRAL LINE IN PLACE. D5 0.45% NS RUNNING AT 75ML/HR AT THIS TIME. FLACC 0. BED AT LOW POSSIBLE POSITION. ALL SAFETY PRECAUTIONS ARE IN PLACE
[2018-04-26] MEDS: DEXT 5% / NACL 0.45% 1,000 ML IV SCH (03:30)
--- NOTE | 2018-04-26 04:21 | NUR ---
SR ON MONITOR AT THIS TIME. CURRENTLY NO CHANGE IN CONDITION AT THIS TIME. PT ASLEEP. NO SIGNS OF DISCOMFORT NOTED AT THIS TIME. HOB AT 30 DEGREES. ALL SAFETY PRECAUTIONS ARE IN PLACE. WILL CONTINUE TO MONITOR PT.
[2018-04-26] MEDS: PIPER/TAZO 2.25GM/D5W PREMIX 50 ML IV SCH ×3 (04:28→20:20)
[2018-04-26] MEDS: metroNIDAZOLE 500 MG/NS PREMIX 100 ML IV SCH ×2 (04:36→13:18)
--- NOTE | 2018-04-26 05:55 | NUR ---
DR. CARRILLO AT BEDSIDE TO SEE PT. UPDATED REGARDING PT CONDITION
[2018-04-26] MEDS: PANTOPRAZOLE 40 MG TABEC PO SCH (06:25)
[2018-04-26] MEDS: BLOOD GLUCOSE MONITORING 1 DEV DEV FS SCH ×4 (06:25→20:20)
--- NOTE | 2018-04-26 06:27 | NUR ---
DR. MUSE AT BEDSIDE TO SEE PT. WILL FOLLOW-UP WITH ANY NEW ORDER
[2018-04-26 06:40] LABS: BASOPHILS % (AUTO) 0.3 % (0.0-2.0); EOSINOPHILS # (AUTO) 0.3 K/uL (0-0.4); EOSINOPHILS % (AUTO) 2.4 % (0.0-4.0); HEMATOCRIT 28.8 % (36-52); HEMOGLOBIN 9.3 g/dL (12.0-18.0); LYMPHOCYTES # (AUTO) 1.5 K/uL (2.0-11.5); LYMPHOCYTES % (AUTO) 10.2 % (20.5-51.1); MEAN CORPUSCULAR HEMOGLOBIN 26 pg (27-31); MEAN CORPUSCULAR HGB CONC 32 g/dL (33-37); MEAN CORPUSCULAR VOLUME 80.6 fL (80-94); MONOCYTES # (AUTO) 0.4 K/uL (0.8-1.0); NEUTROPHILS # (AUTO) 12.2 K/uL (1.8-7.7); NEUTROPHILS % (AUTO) 84.1 % (42.2-75.2); PLATELET COUNT (AUTO) 162 K/uL (140-450); RED BLOOD CELL COUNT(AUTO) 3.57 MIL/uL (4.20-6.10); RED CELL DISTRIBUTION WIDTH 15.9 % (11.6-13.7); WHITE BLOOD COUNT (AUTO) 14.5 K/uL (4.8-10.8)
[2018-04-26 07:03] LABS: ANION GAP 9.1 (8-16); CARBON DIOXIDE 24.9 mmol/L (21-32); CHLORIDE 115 mmol/L (98-107); CREATININE 1.1 mg/dL (0.7-1.3); GLUCOSE 110 mg/dL (74-106); SODIUM SERUM 146 mmol/L (136-145); UREA NITROGEN, BLOOD 20 mg/dL (7-18)
[2018-04-26 07:10] LABS: MAGNESIUM 1.8 mg/dL (1.8-2.4); PHOSPHORUS 1.8 mg/dL (2.5-4.9)
--- NOTE | 2018-04-26 07:30 | NUR ---
RECEIVED REPORT FROM MASON APPRENTICE NURSE AT BEDSIDE, PT IS AAOX1 WITH MUMBLING WORDS, CONFUSED, FOLLOW COMMANDS SOMETIMES. VSS, FLACC 0, NO S/S OF DISTRESS, DIMINISHED LUNG SOUNDS, ON RA, O2 SAT 97%, SR/BBB ON PSYCHOLOGIST EXPERIMENTAL, SOFT ABDOMEN WITH HYPOACTIVE BOWEL SOUNDS, INCONTINENT WITH B&B'S, F/C IN PLACE WITH CLEAR YELLOW URINE VIA GRAVITY. LEFT SIDE WEAKNESS TO LUE AND CONTRACTURE TO BLE NOTED, SKIN IS WARM AND DRY TO TOUCH, NO OPEN WOUND, SACRAL COCCYX REDNESS NOTED, CENTRAL LINE TO RIJ, TLC, PATENT, RUNNING D5 0.2%NS AT 75ML/HR. ELEVATED HOB, SAFETY MEASURE IN PLACE, CALL LIGHT WITHIN REACH, WILL CONTINUE TO MONITOR.
--- NOTE | 2018-04-26 07:30 | NUR ---
REPORT GIVEN TO MORNING RN FOR CONTINUITY OF CARE. PT IN STABLE CONDITION AT THIS TIME.
[2018-04-26] MEDS ORDERED: DEXT 5% / NACL 0.2% 1,000 ML IV SCH (07:50)
[2018-04-26] MEDS ORDERED: glipiZIDE 5 MG TAB PO SCH (08:00)
[2018-04-26] MEDS: PANTOPRAZOLE 40 MG INJ VIAL IVP SCH (08:13)
[2018-04-26] MEDS: TAMSULOSIN 0.4 MG CAP PO SCH (08:13)
[2018-04-26] MEDS: LACTOBACILLUS RHAMNOSUS GG 1 EACH CAP PO SCH ×2 (08:13→20:33)
[2018-04-26] MEDS: GABAPENTIN 100 MG CAP PO SCH ×3 (08:13→16:45)
[2018-04-26] MEDS: ATORVASTATIN 80 MG TAB PO SCH (08:14)
[2018-04-26] MEDS: ASPIRIN 81 MG TAB.CHEW PO SCH (08:14)
[2018-04-26] MEDS: ASCORBIC ACID 500 MG TAB PO SCH ×2 (08:14→20:33)
[2018-04-26] MEDS: POLYETHYLENE GLYCOL 17 GM/PKT PO SCH (08:14)
[2018-04-26] MEDS: MULTIVITAMIN 1 TAB PO SCH (08:14)
[2018-04-26] MEDS: CHOLECALCIFEROL 1,000 IU TAB PO SCH ×2 (08:14→20:33)
[2018-04-26] MEDS ORDERED: levETIRAcetam 1,500 MG in NACL 0.9% 100 ML IV SCH (09:00)
[2018-04-26] MEDS ORDERED: Z-GUARD PASTE TP SCH (09:00)
[2018-04-26] MEDS ORDERED: POTASSIUM PHOSPHATE 30 MM in NACL 0.9% 500 ML IV SCH (09:00)
--- NOTE | 2018-04-26 09:00 | NUR ---
SCHEDULED MEDICATION GIVEN, PT IS ABLE TO SWALLOW THE MEDICATION CRASHED, AND TOLERATED WELL.
--- NOTE | 2018-04-26 10:26 | NUR ---
JONATHAN NOTE RECEIVED FAX FROM [facility] AUTHORIZATION COVERS ADMISSION FROM 04/25/18-04/26/18 AUTH# [id number] [id number] INITIAL REVIEW FAXED TO [facility] [phone] # [phone] JONATHAN Valencia # [phone] SPOKE WITH ADALBERTO ([facility] INSTRUMENT ADJUSTER) PH# [phone] TO FF UP ON THE TRANSFER TO [facility] AND BED AVAILABILITY. PER ADALBERTO, THE EDUCATIONAL ADMINISTRATOR TODAY IS JESICA WHO IS CURRENTLY UNAVAILABLE. I GAVE ADALBERTO MY CONTACT NUMBER AND THE NUMBER TO THE NURSING STATION WHERE PATIENT IS TO GIVE TO JONATHAN MOONEY.
--- NOTE | 2018-04-26 12:00 | NUR ---
DR. HAM CAME IN TO SEE PT AT BEDSIDE, NO NEW ORDER AT THIS TIME.
--- NOTE | 2018-04-26 13:22 | NUR ---
ANODIC TREATER NOTE [id number] Bedside swallow evaluation completed following clearance by JESU Grove. Please refer to ANODIC TREATER evaluation for full report. Recommend: -Puree texture + nectar thick liquids, crush meds w/applesauce. -Upright at 90 during and 20 min after intake -1:1 feeder assistance -Small bites/sips, slow rate, alternate bite/sips, NO STRAW -Recommend additional ANODIC TREATER f/u for swallowing at next level of care -No further ANODIC TREATER intervention indicated at this time. PVE w/JESU Grove re: results and recommendations. RN voiced understanding. Swallow precautions placed at [facility]. G8996: CJ G8997: WING G8998: WING Swallow NOMS 2
[2018-04-26] MEDS: MORPHINE SULFATE 2 MG/ML SYR IVP PRN (13:24)
--- NOTE | 2018-04-26 13:33 | NUR ---
CM NOTE SPOKE WITH [place] REPRODUCTIVE ENDOCRINOLOGIST MAGGIE PH# [phone] WHO STATED THAT SHE JUST SPOKE WITH CM JESICA WHO IS WORKING ON THE PATIENT'S TRANSFER TO A [place] [facility] AND THEY ARE STILL WAITING FOR BED AVAILABILITY IN [facility].
--- NOTE | 2018-04-26 15:00 | NUR ---
Die Storage Clerk Notes: I attempted to meet with patient to screen, patient was unable to verbalized or communicate his needs at the time. asbestos hazard abatement worker and heel caser will follow up as needed.
--- NOTE | 2018-04-26 16:00 | NUR ---
NO CHANGE OF CONDITION AT THIS TIME, VSS, FLACC 0, POSITION CHANGED FOR OFF LOAD PRESSURE.
--- NOTE | 2018-04-26 17:50 | NUR ---
TRANSFERRED PT TO ROOM 112B VIA BED, ALL BELONGS GOES WITH PT, REPORT GIVEN TO MST NURSE AT BEDSIDE FOR CONTINUE OF CARE. PT IS IN STABLE CONDITION AT THIS TIME.
--- NOTE | 2018-04-26 17:51 | NUR ---
Administrative Office Manager Notes: I attempted to contact Patient's daughter Loree Fuentes at to provide her with an update of possible transfer to [place], discuss, confirm and gather additional information about patient. Patient's daughter did not answer, I left her a voice mail MSG with my contact information and request for a call back.
--- NOTE | 2018-04-26 17:55 | NUR ---
RECEIVED PT FROM ICU NURSE VIA PRATIK, PT IS AWAKE AND WITH A RT IJ INSERTED, INTACT. PT' VITAL SIGNS WAS TAKEN AND IS STABLE. PT IS ON A PUREED DIET PER ICU NURSE AND A SWALLOW EVALUATION DONE. PT WAS PUT ON THE BED, SIDE RAILS ARE UP AND CALL LIGHT WITHIN REACH. NO SIGN OF DISTRESS NOTED. WILL MONITOR.
--- NOTE | 2018-04-26 19:30 | NUR ---
SPOKE TO BISHOP IN [place] FROM CASE MANAGEMENT AND OPAL SAID THAT THERE IS AN AVAILABLE BED FOR THE PT AND THAT THE PT WILL BE TRANSFERRED TONIGHT IN [facility].
--- NOTE | 2018-04-26 19:48 | NUR ---
CALLED [facility] AND SPOKE TO MEHREEN NAILS AND GAVE REPORT ABOUT THE PT. PT WILL BE IN RM 316 UNDER THE SERVICE OF DR. ILYA VORA. INDIRECT SALES REPRESENTATIVE TIME WILL BE AT 2130 TO DAY.
--- NOTE | 2018-04-26 19:50 | NUR ---
ENDORSED TO INSTRUMENT DESIGNER NURSEJACQUELINE THAT THE PT WILL BE DISCHARGED AND THAT ALL DISCHARGE PAPERS WERE MADE READY. INSTRUMENT DESIGNER NURSEJACQUELINE ACKNOWLEDGED.
[2018-04-26] MEDS ORDERED: ZGUARD TP ×2 (19:55)
[2018-04-26] MEDS ORDERED: ASPI81CT95 PO (19:55)
[2018-04-26] MEDS ORDERED: ONDA2SOL45 IM/IVP (19:55)
[2018-04-26] MEDS ORDERED: DOCU-299 PO (19:55)
[2018-04-26] MEDS ORDERED: FENT50TD45 TD (19:55)
[2018-04-26] MEDS ORDERED: GLUC-805 FS (19:55)
[2018-04-26] MEDS ORDERED: VITD1000 PO (19:55)
[2018-04-26] MEDS ORDERED: ACET-1182 PO (19:55)
[2018-04-26] MEDS ORDERED: D50SYR IVP (19:55)
[2018-04-26] MEDS ORDERED: ATI2I IM/IVP (19:55)
[2018-04-26] MEDS ORDERED: ZOLP5TAB1 PO (19:55)
[2018-04-26] MEDS ORDERED: PANT40PD7 IVP (19:55)
[2018-04-26] MEDS ORDERED: MULT-405 PO (19:55)
[2018-04-26] MEDS ORDERED: GABA-636 PO (19:55)
[2018-04-26] MEDS ORDERED: levetiracetam IV (19:55)
[2018-04-26] MEDS ORDERED: MORP2SOL18 IVP (19:55)
[2018-04-26] MEDS ORDERED: LIP80 PO (19:55)
[2018-04-26] MEDS ORDERED: PIPE50SO5 IV (19:55)
[2018-04-26] MEDS ORDERED: IPRA3AMP IH (19:55)
[2018-04-26] MEDS ORDERED: METR500S15 IV (19:55)
[2018-04-26] MEDS ORDERED: HEPA500056 SUBQ (19:55)
[2018-04-26] MEDS ORDERED: LACT10SO11 PO (19:55)
[2018-04-26] MEDS ORDERED: LACT10CA PO (19:55)
[2018-04-26] MEDS ORDERED: GLIP5TAB13 PO (19:55)
[2018-04-26] MEDS ORDERED: PANT40EC28 PO (19:55)
[2018-04-26] MEDS ORDERED: HUMSLIDE SUBQ (19:55)
[2018-04-26] MEDS ORDERED: ACET-9525 PO (19:55)
--- NOTE | 2018-04-26 20:30 | NUR ---
RECEIVED A CALL FROM ANNA THAT PT WILL BE PICKED UP IN AN HOUR. VITAL SIGNS OF PT WAS REPORTED TO ANNA. PT WILL BE PICKED UP BY [facility].
--- NOTE | 2018-04-26 21:05 | NUR ---
DISCHARGED PT VIA GURNEY WITH THE [facility] PERSONNEL. ARM BANDS REMOVED. PT IS STABLE AT THIS TIME.
[2018-04-27] MEDS ORDERED: FENTANYL 50 MCG TD SCH (09:00)
[2018-04-27] MEDS ORDERED: fentaNYL 0.05 MG/HR PATCH TD SCH (09:00)
== END 2018-04-26 21:05 | disposition short-term general hospital (02) | DRG 871 ==
LOC: MED 06:45 → MIC 12:07 → MTU 04-26 18:55
PROVIDERS: ADMIT General Practice; ATTEND General Practice
PROC: 02HV33Z Insertion of Infusion Device into Superior Vena Cava, Percutaneous Approach (ICD-10-PCS; principal; 2018-04-24)
DX: A41.9 Sepsis, unspecified organism (principal); R65.21 Severe sepsis with septic shock; J69.0 Pneumonitis due to inhalation of food and vomit; N17.0 Acute kidney failure with tubular necrosis; E43 Unspecified severe protein-calorie malnutrition; R53.2 Functional quadriplegia; I21.A1 Myocardial infarction type 2; J96.00 Acute respiratory failure, unspecified whether with hypoxia or hypercapnia; G93.41 Metabolic encephalopathy; I50.43 Acute on chronic combined systolic (congestive) and diastolic (congestive) heart failure; N39.0 Urinary tract infection, site not specified; E87.0 Hyperosmolality and hypernatremia; E87.2 Acidosis; J98.11 Atelectasis; I13.0 Hypertensive heart and chronic kidney disease with heart failure and stage 1 through stage 4 chronic kidney disease, or unspecified chronic kidney disease; I69.354 Hemiplegia and hemiparesis following cerebral infarction affecting left non-dominant side; E86.0 Dehydration; G40.909 Epilepsy, unspecified, not intractable, without status epilepticus; K21.9 Gastro-esophageal reflux disease without esophagitis; N40.0 Benign prostatic hyperplasia without lower urinary tract symptoms; I95.9 Hypotension, unspecified; F03.90 Unspecified dementia, unspecified severity, without behavioral disturbance, psychotic disturbance, mood disturbance, and anxiety; E11.40 Type 2 diabetes mellitus with diabetic neuropathy, unspecified; E83.42 Hypomagnesemia; N18.9 Chronic kidney disease, unspecified; D64.9 Anemia, unspecified; E87.6 Hypokalemia; E83.39 Other disorders of phosphorus metabolism; E11.21 Type 2 diabetes mellitus with diabetic nephropathy; E11.22 Type 2 diabetes mellitus with diabetic chronic kidney disease; E11.51 Type 2 diabetes mellitus with diabetic peripheral angiopathy without gangrene; N28.1 Cyst of kidney, acquired; I69.320 Aphasia following cerebral infarction; Z68.20 Body mass index [BMI] 20.0-20.9, adult; Z79.899 Other long term (current) drug therapy
CPT/HCPCS: 36415; 36600; 51702; 70450; 71045; 76770; 80048; 80053; 80305; 81001; 82140; 82150; 82550; 82553; 82728; 82803; 82948; 83036; 83540; 83605; 83690; 83735; 83874; 83880; 84100; 84134; 84443; 84484; 85025; 85610; 85730; 87040; 87081; 87086; 92610; 93005; 93880; 94640; 96361; 96365; 96375; 97799; 99291; C9113; J1170; J1642; J1644; J1815; J1953; J2060; J2270; J2543; J3475; J3490; J7030; J7042; J7620; Q0092

== ENCOUNTER 2020-07-14 17:08 | Emergency (ER) | payer MEDICARE, OTHER ==
[~2020-07-14] VITALS: Ht 175.3 cm; Wt 57.6 kg
[~2020-07-14 17:08] MED LIST: ACET-1182 PO; ACET-9525 PO; ALBU3SOL83 IH; ASCO500T95 PO; ASPI81CT33 PO; ASPI81CT95 PO; ATI2I IM/IVP; D50SYR IVP; DOCU-299 PO; FENT50TD45 TD; GABA-636 PO; GLIP5TAB13 PO; GLIP5TER PO; GLUC-805 FS; HEPA500056 SUBQ; HUMSLIDE SUBQ; LACT0.5T PO; LACT10CA PO; LACT10SO1 PO; LACT10SO11 PO; LIP80 PO; METR500S15 IV; MIRABULK PO; MORP2SOL18 IVP; MULT-405 PO; MULT-492 PO; OMEP20TC PO; ONDA2SOL45 IM/IVP; PANT40EC56 PO; PANT40PD7 IVP; PIPE50SO5 IV; TAMS0.4C96 PO; VITD1000 PO; ZGUARD TP; ZOLP5TAB1 PO; [UNRECOGNIZED DRUG - CODE] PO; levetiracetam IV
[2020-07-14 17:10] VITALS: BP 172/64
[2020-07-14 17:53] LABS: BASOPHILS # (AUTO) 0.1 K/uL (0.00-0.22); BASOPHILS % (AUTO) 0.5 % (0.0-2.0); EOSINOPHILS % (AUTO) 0.3 % (0.0-4.0); HEMATOCRIT 34.1 % (36-52); LYMPHOCYTES # (AUTO) 1.3 K/uL (2.0-11.5); LYMPHOCYTES % (AUTO) 12.1 % (20.5-51.1); MEAN CORPUSCULAR HEMOGLOBIN 26 pg (27-31); MEAN CORPUSCULAR HGB CONC 32 g/dL (33-37); MONOCYTES # (AUTO) 0.6 K/uL (0.8-1.0); MONOCYTES % (AUTO) 5.4 % (1.7-9.3); NEUTROPHILS # (AUTO) 8.6 K/uL (1.8-7.7); NEUTROPHILS % (AUTO) 81.7 % (42.2-75.2); PLATELET COUNT (AUTO) 230 K/uL (140-450); RED BLOOD CELL COUNT(AUTO) 4.31 MIL/uL (4.20-6.10); RED CELL DISTRIBUTION WIDTH 14.8 % (11.6-13.7); WHITE BLOOD COUNT (AUTO) 10.6 K/uL (4.8-10.8)
[2020-07-14 18:10] LABS: ALBUMIN 2.5 g/dL (3.4-5.0); ANION GAP 10.4 (8-16); ASPARTATE AMINOTRANSFERASE 18 U/L (15-37); CARBON DIOXIDE 27.3 mmol/L (21-32); CHLORIDE 109 mmol/L (98-107); CREATININE 1.3 mg/dL (0.6-1.3); GLUCOSE 228 mg/dL (74-106); POTASSIUM 3.7 mmol/L (3.5-5.1); SODIUM SERUM 143 mmol/L (136-145); TOTAL BILIRUBIN 0.3 mg/dL (0.0-1.0); UREA NITROGEN, BLOOD 22 mg/dL (7-18)
[2020-07-14 18:13] LABS: PROTHROMBIN TIME 9.8 secs (10.8-13.4)
[2020-07-14 18:27] LABS: LACTATE DEHYDROGENASE 135 U/L (85-227)
[2020-07-14] MEDS ORDERED: NACL 0.9% 500 ML IV ONE (18:50)
[2020-07-14 18:55] LABS: C-REACTIVE PROTEIN QUANT 14.8 mg/dL (0.0-0.9)
[2020-07-14 19:15] LABS: RSV NEGATIVE (NEGATIVE)
[2020-07-14] MEDS ORDERED: OSELTAMIVIR PHOSPHATE 75 MG CAP PO ONE (19:25)
[2020-07-14 20:51] LABS: BILIRUBIN,URINE NEGATIVE (NEGATIVE); BLOOD, URINE 3+ (NEGATIVE); COLOR,URINE YELLOW (YELLOW); LEUKOCYTE ESTERASE ,URINE TRACE (NEGATIVE); NITRITE, URINE NEGATIVE (NEGATIVE); UGLUCOSE NEGATIVE (NEGATIVE)
[2020-07-14 21:09] LABS: APPEARANCE,URINE HAZY (CLEAR)
[2020-07-14 21:35] LABS: WBC,URINE 20-60 /HPF (0-5)
[2020-07-14] MEDS ORDERED: cefTRIAXone 1,000 MG VIAL ONE (22:37)
[2020-07-15] MEDS ORDERED: fentaNYL citrate 0.05 MG/ML VIAL IVP ONE (00:25)
[2020-07-15 03:57] VITALS: BP 125/62
== END 2020-07-15 03:54 | disposition short-term general hospital (02) ==
LOC: MED 17:08
DX: J10.1 Influenza due to other identified influenza virus with other respiratory manifestations (principal); N39.0 Urinary tract infection, site not specified; E07.9 Disorder of thyroid, unspecified; E11.9 Type 2 diabetes mellitus without complications; F03.90 Unspecified dementia, unspecified severity, without behavioral disturbance, psychotic disturbance, mood disturbance, and anxiety; I63.9 Cerebral infarction, unspecified; I10 Essential (primary) hypertension; K21.9 Gastro-esophageal reflux disease without esophagitis; R56.9 Unspecified convulsions; Z99.81 Dependence on supplemental oxygen; Z79.899 Other long term (current) drug therapy; Z20.828 Contact with and (suspected) exposure to other viral communicable diseases
CPT/HCPCS: 36415; 36600; 71045; 71275; 80053; 81001; 82550; 82728; 82803; 83605; 83615; 83880; 84484; 85025; 85379; 85384; 85610; 85730; 86140; 87040; 87086; 87420; 87426; 87804; 93005; 96361; 96365; 96375; 99291; J0696; J3010; J7030; Q0092; Q9967; U0003; 96374; 99285

== ENCOUNTER 2020-09-06 09:35 | Emergency (ER) | payer MEDICARE, OTHER, SELFPAY ==
[~2020-09-06] VITALS: Ht 165.1 cm; Wt 49.9 kg
[2020-09-06 09:35] VITALS: BP 143/74
--- NOTE | 2020-09-06 09:35 | NUR ---
PATIENT BIBA ALS TO ER BED 11
[2020-09-06] MEDS ORDERED: NACL 0.9% 2,000 ML IV ONE (09:40)
--- NOTE | 2020-09-06 09:45 | NUR ---
79 Y/O MALE BIBA FROM [facility] [place] C/O ALOC, LETHARGIC X1.5 HOUR AGO. PT LUNGS ARE DIMINISHED AT [place]ATER[place] BASES, PRESENCE OF DRY NON-PRODUCTIVE HACKING COUGH. PER FACILITY PT BASELINE GCS 15. PMH: GERD, BPH, DM, CVA, HEMPLEGIA LEFT SIDE, APHASIA.
--- NOTE | 2020-09-06 09:57 | NUR ---
PT MOVED TO BED 9
--- NOTE | 2020-09-06 10:11 | NUR ---
PErformed Girish coombs and andrea, walked to lab.
--- NOTE | 2020-09-06 10:13 | NUR ---
Pt taken to CT via vi
--- NOTE | 2020-09-06 10:13 | NUR ---
22G IV placed to right hand with good blood return
[2020-09-06 10:15] LABS: BASOPHILS % (AUTO) 0.3 % (0.0-2.0); EOSINOPHILS % (AUTO) 0.1 % (0.0-4.0); HEMATOCRIT 40.1 % (36-52); HEMOGLOBIN 12.5 g/dL (12.0-18.0); LYMPHOCYTES # (AUTO) 2.1 K/uL (2.0-11.5); LYMPHOCYTES % (AUTO) 13.9 % (20.5-51.1); MEAN CORPUSCULAR HEMOGLOBIN 25 pg (27-31); MEAN CORPUSCULAR HGB CONC 31 g/dL (33-37); MEAN CORPUSCULAR VOLUME 80.2 fL (80-94); MONOCYTES # (AUTO) 0.8 K/uL (0.8-1.0); MONOCYTES % (AUTO) 5.1 % (1.7-9.3); NEUTROPHILS # (AUTO) 12.4 K/uL (1.8-7.7); NEUTROPHILS % (AUTO) 80.6 % (42.2-75.2); PLATELET COUNT (AUTO) 377 K/uL (140-450); RED BLOOD CELL COUNT(AUTO) 4.99 MIL/uL (4.20-6.10); RED CELL DISTRIBUTION WIDTH 16.4 % (11.6-13.7); WHITE BLOOD COUNT (AUTO) 15.3 K/uL (4.8-10.8)
[2020-09-06] MEDS ORDERED: CRAN450C PO (10:17)
[2020-09-06] MEDS ORDERED: METO25TA PO (10:17)
[2020-09-06] MEDS ORDERED: KEP500L PO (10:17)
[2020-09-06] MEDS ORDERED: AMLO10TA PO (10:17)
[2020-09-06] MEDS ORDERED: MAGN400S60 PO (10:17)
[2020-09-06] MEDS ORDERED: NA P133E RC (10:17)
[2020-09-06] MEDS ORDERED: MULT-1868 PO (10:17)
[2020-09-06] MEDS ORDERED: BISA-213 RC (10:17)
[2020-09-06] MEDS ORDERED: DOCU-299 PO (10:17)
[2020-09-06] MEDS ORDERED: POTA20LI41 PO (10:17)
[2020-09-06] MEDS ORDERED: ACET-9882 PO (10:17)
[2020-09-06] MEDS ORDERED: ROB PO (10:17)
[2020-09-06] MEDS ORDERED: cefTRIAXone 1,000 MG VIAL ONE (10:20)
[2020-09-06 10:38] LABS: ALBUMIN 2.7 g/dL (3.4-5.0); ANION GAP 17.6 (8-16); ASPARTATE AMINOTRANSFERASE 58 U/L (15-37); CARBON DIOXIDE 25.2 mmol/L (21-32); CHLORIDE 119 mmol/L (98-107); CREATININE 2.7 mg/dL (0.6-1.3); POTASSIUM 4.8 mmol/L (3.5-5.1); TOTAL BILIRUBIN 0.3 mg/dL (0.0-1.0)
[2020-09-06 10:40] LABS: GLUCOSE 507 mg/dL (74-106); SODIUM SERUM 157 mmol/L (136-145)
[2020-09-06 10:41] LABS: UREA NITROGEN, BLOOD 78 mg/dL (7-18)
--- NOTE | 2020-09-06 11:10 | NUR ---
Unable to obtain urine through multiple straight cath attempts. Dr Bruner made aware.
--- NOTE | 2020-09-06 11:53 | NUR ---
Spoke with from [place], informed that we were unsuccessful in collecting urine at this time and no further orders from Dr. Bruner.
--- NOTE | 2020-09-06 12:33 | NUR ---
Pt had large, watery bowel movement. Clean and repositioned for comfort at this time. VSS. Will continue to monitor.
--- NOTE | 2020-09-06 13:14 | NUR ---
Lab at pt bedside.
--- NOTE | 2020-09-06 14:11 | NUR ---
Lactic acid 2.3--critical value received from lab. Dr Bruner made aware
--- NOTE | 2020-09-06 14:15 | NUR ---
Pt had a watery loose stool, changed and repositioned for comfort. VSS, will continue to monitor.
--- NOTE | 2020-09-06 15:35 | NUR ---
Spoke with Priyanka NAILS [facility] [phone] for pending admission room 444. ALS transport at 1545.
[2020-09-06 15:59] VITALS: BP 134/59
--- NOTE | 2020-09-06 16:00 | NUR ---
Patient to be transferred to [facility]. Is being transferred due to Insurance. Receiving facility has accepting physician and available space. ER physician has signed transfer form. Patient or responsible republican has agreed to transfer and signed form. Patient belongings inventoried and will be sent with patient. Copy of nursing notes, lab reports, EKG, Physicians Orders and X-rays to be sent with patient. Report called to JESU Mathew at receiving facility. [facility] ambulance service has been called for transfer.
== END 2020-09-06 15:59 | disposition short-term general hospital (02) ==
LOC: MED 09:35
DX: R65.20 Severe sepsis without septic shock (principal); E87.1 Hypo-osmolality and hyponatremia; R41.82 Altered mental status, unspecified; E11.9 Type 2 diabetes mellitus without complications; F03.90 Unspecified dementia, unspecified severity, without behavioral disturbance, psychotic disturbance, mood disturbance, and anxiety; K21.9 Gastro-esophageal reflux disease without esophagitis; I10 Essential (primary) hypertension; Z86.73 Personal history of transient ischemic attack (TIA), and cerebral infarction without residual deficits; Z79.84 Long term (current) use of oral hypoglycemic drugs; Z79.899 Other long term (current) drug therapy
CPT/HCPCS: 36415; 70450; 71045; 80053; 83605; 85025; 87040; 87426; 93005; 96361; 96365; 99291; J0696; J7030; U0003